=== PATIENT | female | born 1960 | race American Indian/Alaskan Native ===

== ENCOUNTER 2016-08-28 10:51 | Emergency (ER) | payer MEDICAID ==
[2016-08-28] MEDS ORDERED: FUL-GLO OP ONE (14:51)
[2016-08-28] MEDS ORDERED: TETRACAINE 0.5% OD ONE (14:51)
--- NOTE | 2016-08-28 14:51 | Emergency Department Report ---
ED Eye Problem HPI - General Chief complaint: Eye Problems Stated complaint: POSS PINK EYE Time Seen by Provider: 08/28/16 14:48 Source: patient Mode of arrival: Ambulatory Limitations: No Limitations - History of Present Illness Initial comments: Patient here with complaints of eye redness and drainage for 1 week. She denies any injury or foreign body sensation to eye. She says she was exposed to grandkids with pinkeye. Denies any eye pain. Pain is 0 out of 10. She said her eye is swollen shut and was matted this morning. Denies any blurred vision. chief complaint: eye redness Onset/Timin -: week(s) Onset Description: gradual Location: right eye Place: home If Injury: none Eye Symptoms: redness, discharge, other (swelling) Severity scale (0 -10): 0 Associated Symptoms: denies: headache, neck pain, nausea/vomiting, cough, rhinorrhea, fever, shortness of breath Treatments Prior to Arrival: none - Related Data Patient Tetanus UTD: Yes Allergies Allergy/AdvReac Type Severity Reaction Status Date / Time No Known Allergies Allergy Unverified 08/28/16 11:14 ED Review of Systems ROS: Stated complaint: POSS PINK EYE Other details as noted in HPI Comment: All other systems reviewed and negative Constitutional: denies: chills, fever Eyes: eye discharge. denies: eye pain, vision change ENT: denies: ear pain, throat pain, congestion Respiratory: no symptoms reported Cardiovascular: denies: chest pain, palpitations, edema, syncope Endocrine: no symptoms reported Gastrointestinal: denies: abdominal pain, nausea, vomiting Musculoskeletal: denies: back pain Skin: denies: rash Neurological: denies: headache ED Past Medical Hx - Past Medical History Previous Medical History?: No - Surgical History Past Surgical History?: Yes Additional Surgical History: C SECTION - Family History Family history: no significant - Social History Smoking Status: Never Smoker Substance Use Type: None ED Physical Exam - General Limitations: No Limitations General appearance: alert, in no apparent distress - Head Head exam: Present: atraumatic, normocephalic, normal inspection - Eye Eye exam: Present: normal appearance, PERRL, EOMI, conjunctival injection. Absent: scleral icterus, nystagmus, periorbital swelling, periorbital tenderness Pupils: Present: normal accommodation - Expanded Eye Exam Expanded Eyelids: Swelling: Right (mild swelling to right upper eyelid) Pupils: Regular, Round: Bilateral, Reactive: Bilateral Sclera/Conjunctival: Injection: Right (with crusting), Exudate: Right Anterior chamber: Normal Inspection: Bilateral Posterior chamber: Normal Inspection: Bilateral Visual acuity (R) = 20/: 100 Visual acuity (L) = 20/: 50 (20/50 both eyes) With correction: No - ENT ENT exam: Present: normal exam, normal orophraynx, mucous membranes moist, TM's normal bilaterally, normal external ear exam - Neck Neck exam: Present: normal inspection, full ROM. Absent: tenderness, meningismus, lymphadenopathy - Respiratory Respiratory exam: Present: normal lung sounds bilaterally. Absent: respiratory distress, chest wall tenderness - Cardiovascular Cardiovascular Exam: Present: normal rhythm, tachycardia, normal heart sounds - GI/Abdominal GI/Abdominal exam: Present: soft, normal bowel sounds. Absent: distended, tenderness, guarding, rebound, rigid - Extremities Exam Extremities exam: Present: normal inspection, full ROM, normal capillary refill. Absent: tenderness, pedal edema, joint swelling, calf tenderness - Back Exam Back exam: Present: normal inspection, full ROM - Neurological Exam Neurological exam: Present: alert, oriented X3, normal gait, reflexes normal. Absent: motor sensory deficit - Psychiatric Psychiatric exam: Present: normal affect, normal mood - Skin Skin exam: Present: warm, dry, intact, normal color. Absent: rash ED Course Vital Signs 08/28/16 11:14 Temperature 98.5 F Pulse Rate 102 H Respiratory 20 Rate Blood Pressure 154/90 O2 Sat by Pulse 99 Oximetry Vital Signs 08/28/16 08/28/16 11:14 15:38 Temperature 98.5 F Pulse Rate 102 H 78 Respiratory 20 Rate Blood Pressure 154/90 O2 Sat by Pulse 99 Oximetry - Reevaluation(s) Reevaluation #1: 08/28/16 15:39 See procedure note for details under More lamp testing - Procedure Description Procedures done: Right eye procedure: Right eye examined under More lamp. He reports lamp patient received 2 drops of tetracaine in right eye Followed by fluoroscopy staining staining without any uptake. On exam: No corneal abrasion or corneal ulcer noted. Patient tolerated procedure well. ED Medical Decision Making - Medical Decision Making ED course: She with conjunctivitis of right eye secondary to exposure from grandchildren. See Procedure note for more test. I discussed treatment plan and diagnosis with patient and she is in agreement. Discharged home with prescription for gentamicin and to follow-up I doctor in 2 days. Critical care attestation.: If time is entered above; I have spent that time in minutes in the direct care of this critically ill patient, excluding procedure time. ED Disposition Clinical Impression: Conjunctivitis, right eye Qualifiers: Conjunctivitis type: acute Acute conjunctivitis type: unspecified Qualified Code(s): H10.31 - Unspecified acute conjunctivitis, right eye Disposition: DISCHARGED TO HOME OR SELFCARE Is pt being admited?: No Does the pt Need Aspirin: No Condition: Stable Instructions: Conjunctivitis (ED) Additional Instructions: instilled 2 drops of eyedrop and right eye as instructed. Please follow up with eye doctor in 2 days Referrals: PRIMARY CAREMD [Primary Care Provider] - 3-5 Days KUSUM MORALES MD [Staff Physician] - 08/30/16 Forms: Work/School Release Form(ED)
[2016-08-28 15:54] VITALS: BP 155/92
== END 2016-08-28 15:54 | disposition home or self-care (01) ==
LOC: ED 10:51
DX: H10.31 Unspecified acute conjunctivitis, right eye (principal)
CPT/HCPCS: 99283